=== PATIENT | female | born 1990 | race African-American/Black ===

== ENCOUNTER 2019-11-10 17:30 | Emergency (ER) | payer BC ==
[~2019-11-10] VITALS: Ht 175.3 cm; Wt 77.3 kg
[2019-11-10 18:55] LABS: BASOPHILS % (AUTO) 0.3 % (0-1); EOSINOPHILS # (AUTO) 0.2 X10'3 (0-0.9); EOSINOPHILS % (AUTO) 2.9 % (0-6); HEMATOCRIT 38.7 % (35.0-45.0); HEMOGLOBIN 12.8 g/dl (12.0-16.0); LYMPHOCYTES # (AUTO) 2.7 X10'3 (1.1-4.8); LYMPHOCYTES % (AUTO) 38.2 % (21-51); MEAN CORPUSCULAR HEMOGLOBIN 27.1 PG (27.0-31.0); MEAN CORPUSCULAR HGB CONC 33.1 g/dL (33.0-36.5); MEAN PLATELET VOLUME 8.9 FL (7.4-10.4); MONOCYTES # (AUTO) 0.6 X10'3 (0-0.9); MONOCYTES % (AUTO) 8.4 % (2-12); NEUTROPHILS # (AUTO) 3.6 X10'3 (1.8-7.7); NEUTROPHILS % (AUTO) 50.2 % (42-75); PLATELET COUNT 208 X10'3 (140-440); RED BLOOD COUNT 4.73 X10'6 (4.20-5.60); RED CELL DISTRIBUTION WIDTH 13.7 % (11.5-14.5); WHITE BLOOD COUNT 7.1 X10'3 (4.5-11.0)
[2019-11-10 19:02] LABS: ALANINE AMINOTRANSFERASE 20 U/L (12-78); ALKALINE PHOSPHATASE 40 IU/L (46-116); ANION GAP 11 (8-16); ASPARTATE AMINO TRANSFERASE 19 U/L (10-37); BILIRUBIN,TOTAL 0.1 MG/DL (0.1-1.0); BLOOD UREA NITROGEN 12 MG/DL (7-18); BUN/CREATININE RATIO 14.8 (6.6-38.0); CALCIUM 8.9 MG/DL (8.5-10.1); CHLORIDE 103 MMOL/L (99-107); CREATININE 0.81 MG/DL (0.40-0.90); GLUCOSE 98 MG/DL (70-104); POTASSIUM 3.8 MMOL/L (3.5-5.1); SODIUM 137 MMOL/L (135-145); TOTAL CARBON DIOXIDE 23.4 MMOL/L (24-32); TOTAL PROTEIN 7.9 G/DL (6.4-8.2); eGFR 85 ML/MIN
[2019-11-10 19:08] LABS: URINE HCG POSITIVE (NEG)
--- NOTE | 2019-11-10 19:24 | NUR ---
UPDATED NUCLEAR PHYSICIAN THAT PT STILL HAS NOT BEEN PICKED UP BY PROVIDER.
[2019-11-10 19:39] LABS: CLARITY,URINE SLIGHTLY CLOUDY (Clear); COLOR,URINE RED (Yellow); GLUCOSE, URINE NEGATIVE (Neg); KETONES,URINE NEGATIVE (Neg); LEUKOCYTE ESTERASE ,URINE NEGATIVE (Neg); NITRITES, URINE NEGATIVE (Neg); OCCULT BLOOD,URINE LARGE (Neg); PH,URINE 6.5 (4.8-8.0); PROTEIN,URINE NEGATIVE (Neg); UROBILINOGEN,URINE 0.2 E.U/dL (0.2-1.0)
[2019-11-10 19:41] LABS: UA COLLECTION TYPE CLN CATCH MIDSTREAM
--- NOTE | 2019-11-10 19:41 | NUR ---
INQUIRED TO ED MD JOHNSON REGARDING PT STATUS AND THAT SHE IS IN 9/10 PAIN- IF WE COULD GET HER SOMETHING FOR THE PAIN. ED MD TO SPEAK WITH PT- WILL CONT TO MONITOR.
[2019-11-10] MEDS ORDERED: acetaminophen 325mg tablet PO ONE (20:00)
[2019-11-10 20:25] LABS: WBC,URINE NONE SEEN /HPF (0-4)
[2019-11-10 20:26] LABS: BACTERIA,URINE NONE SEEN /HPF (Neg); MUCUS STRANDS FEW /LPF (Neg); RBC,URINE 50-100 /HPF (0-2); SQUAMOUS EPITHELIAL CELL,UR FEW /LPF (FEW)
--- NOTE | 2019-11-10 20:54 | NUR ---
RN SPOKE TO US TECH- TECH SAYS THAT EVIDENCE OF FETUS IS STILL PRESENT IN LOWER UTERINE AREA- WILL UPDATE MD
[2019-11-10] MEDS ORDERED: RHO(D) immune globulin 1,500 units (300 MCG) syringe IM ONE (21:30)
[2019-11-10 22:36] VITALS: BP 116/58
== END 2019-11-10 22:38 | disposition home or self-care (01) ==
LOC: ER 17:31
DX: O03.4 Incomplete spontaneous abortion without complication (principal); N92.4 Excessive bleeding in the premenopausal period; R11.0 Nausea; R10.32 Left lower quadrant pain
CPT/HCPCS: 36415; 76801; 76817; 80053; 81001; 81025; 84702; 85025; 86900; 86901; 93976; 96372; 99285